=== PATIENT | female | born 1980 | race Hispanic/Latino ===

== ENCOUNTER 2023-12-14 08:35 | Outpatient (CLI) | payer BC | END 2023-12-14 08:36 | disposition home or self-care (01) | LOC: CSHLAB 08:35 | PROVIDERS: ATTEND Obstetrics & Gynecology | DX: Z01.812 Encounter for preprocedural laboratory examination (principal); D25.9 Leiomyoma of uterus, unspecified; N92.0 Excessive and frequent menstruation with regular cycle; N81.6 Rectocele | CPT/HCPCS: 84703; 85027; 86850; 86900; 86901 ==